=== PATIENT | male | born 1980 | race African-American/Black ===

== ENCOUNTER 2024-08-03 10:49 | Emergency (ER) | payer MEDICAID ==
[~2024-08-03] VITALS: Ht 170.2 cm; Wt 73.0 kg
[2024-08-03 10:59] VITALS: BP 136/88; PULSE 106; RESP 18; TEMP 36.9; O2SAT 100
[2024-08-03] MEDS ORDERED: CYCL10TA21 MT (12:04)
== END 2024-08-03 12:11 | disposition home or self-care (01) ==
LOC: ER 11:43
DX: R04.0 Epistaxis (principal); V43.52XA Car driver injured in collision with other type car in traffic accident, initial encounter; Y93.89 Activity, other specified; Y92.410 Unspecified street and highway as the place of occurrence of the external cause; Y99.8 Other external cause status
CPT/HCPCS: 99283